=== PATIENT | male | born 1975 | race Caucasian/White ===

== ENCOUNTER 2019-07-12 08:31 | Emergency (ER) | payer OTHER ==
[~2019-07-12] VITALS: Ht 193 cm; Wt 99.8 kg
[~2019-07-12 08:31] MED LIST: KETO10TA2 PO; TAMS0.4C PO
== END 2019-07-12 14:24 | disposition home or self-care (01) ==
LOC: ER 08:31
DX: K21.9 Gastro-esophageal reflux disease without esophagitis (principal); R07.89 Other chest pain

== ENCOUNTER 2021-04-09 11:11 | Emergency (ER) | payer OTHER ==
[~2021-04-09] VITALS: Ht 193 cm; Wt 104.3 kg
== END 2021-04-09 16:29 | disposition home or self-care (01) ==
LOC: ER 11:11
DX: M54.9 Dorsalgia, unspecified (principal)

== ENCOUNTER 2024-06-29 23:11 | Emergency (ER) | payer OTHER ==
[~2024-06-29] VITALS: Ht 182.9 cm; Wt 104.3 kg
[2024-06-30] MEDS ORDERED: HYOSCYAMINE SULFATE 0.125 MG TAB.SUBL SL STA (00:54)
[2024-06-30] MEDS ORDERED: HYOSCYAMINE SULFATE 0.125 MG TAB.SUBL ONE (00:59)
[2024-06-30 01:33] LABS: BASO % 0.4 % (0.1-1.2); EOS % 0.1 % (0.7-7.0); HEMATOCRIT 44.3 % (40.1-51.0); HEMOGLOBIN 14.7 g/dL (13.7-17.5); LYMPH % 6.4 % (19.3-53.1); MEAN CORPUSCULAR HEMOGLOBIN 27.9 pg (25.6-32.2); MONO % 6.3 % (4.7-12.5); NEUT % 86.4 % (34.0-71.1); PLATELET COUNT 280 K/uL (163-369); RED BLOOD COUNT 5.27 M/uL (4.63-6.08); RED CELL DISTRIBUTION WIDTH 13.3 % (11.6-14.4)
[2024-06-30 01:34] LABS: EOS # 0.02 (0.04-0.54); LYMPH # 0.87 (1.18-3.74); MONO # 0.85 (0.24-0.82); NEUT # 11.69 (1.56-6.13)
[2024-06-30 01:59] LABS: CALCIUM 9.1 mg/dL (8.5-10.1); CREATININE SERUM 1.55 mg/dL (0.70-1.30); GFR 47.89; POTASSIUM 4.15 mEq/L (3.5-5.1)
[2024-06-30 02:08] LABS: URINE APPEARANCE Clear; URINE BILIRRUBIN Negative (NEGATIVE); URINE BLOOD Large; URINE COLOR Yellow; URINE GLUCOSE Negative (NEGATIVE); URINE KETONE Trace (NEGATIVE); URINE LEUKOCYTE Negative; URINE NITRATE Negative; URINE PROTEIN Negative (NEGATIVE)
[2024-06-30 02:12] LABS: URINE BACTERIA 25.6 uL (0.0-1933); URINE EPITHELIAL CELLS 4.1 uL (0.0-38.8); URINE RBC 140.3 uL (0.0-20.8); URINE WBC 14.7 uL (0.0-23.2)
[2024-06-30 02:16] LABS: URINE CAST 0.29 uL (0.0-1.40)
[2024-06-30] MEDS ORDERED: MINERAL OIL 30 ML BLIST.PACK ONE (05:04)
[2024-06-30] MEDS ORDERED: HYDROGEN PEROXIDE 473 ML BOTTLE TOP ONE (05:04)
== END 2024-06-30 07:36 | disposition home or self-care (01) ==
LOC: ER 23:11
DX: K59.00 Constipation, unspecified (principal); N13.9 Obstructive and reflux uropathy, unspecified; N20.1 Calculus of ureter

== ENCOUNTER 2024-07-05 10:59 | Emergency (ER) | payer OTHER ==
[~2024-07-05] VITALS: Ht 193 cm; Wt 104.3 kg
[2024-07-05] MEDS ORDERED: KETOROLAC TROMETHAMINE 60 MG VIAL IM ONE ×2 (12:07→12:15)
[2024-07-05 12:36] LABS: BASO % 0.4 % (0.1-1.2); EOS # 0.13 (0.04-0.54); EOS % 1.2 % (0.7-7.0); HEMATOCRIT 43.5 % (40.1-51.0); HEMOGLOBIN 14.5 g/dL (13.7-17.5); LYMPH # 1.11 (1.18-3.74); LYMPH % 9.9 % (19.3-53.1); MEAN CORPUSCULAR HEMOGLOBIN 27.9 pg (25.6-32.2); MONO # 0.73 (0.24-0.82); MONO % 6.5 % (4.7-12.5); NEUT # 9.19 (1.56-6.13); NEUT % 81.5 % (34.0-71.1); PLATELET COUNT 303 K/uL (163-369); RED BLOOD COUNT 5.19 M/uL (4.63-6.08)
[2024-07-05 12:57] LABS: ALBUMIN 3.7 gm/dL (3.4-5.0); BILIRUBIN TOTAL 0.42 mg/dL (0.3-1.2); CALCIUM 9.2 mg/dL (8.5-10.1); CREATININE SERUM 1.11 mg/dL (0.70-1.30); GFR 70.41; POTASSIUM 3.94 mEq/L (3.5-5.1); TOTAL PROTEIN 7.7 gm/dL (6.4-8.2)
[2024-07-05 12:59] LABS: PH,URINE 5.5 (5.0-8.0); URINE APPEARANCE Clear; URINE BILIRRUBIN Negative (NEGATIVE); URINE BLOOD Small; URINE COLOR Dark Yellow; URINE GLUCOSE Negative (NEGATIVE); URINE KETONE Trace (NEGATIVE); URINE LEUKOCYTE Negative; URINE NITRATE Negative; URINE PROTEIN Trace (NEGATIVE); URINE UROBILINOGEN 0.2 E.U./dl
[2024-07-05 13:02] LABS: URINE BACTERIA 9.7 uL (0.0-1933); URINE EPITHELIAL CELLS 5.6 uL (0.0-38.8); URINE RBC 69.5 uL (0.0-20.8); URINE WBC 8.6 uL (0.0-23.2)
[2024-07-05 13:03] LABS: URINE CAST 0.44 uL (0.0-1.40)
== END 2024-07-05 17:15 | disposition home or self-care (01) ==
LOC: ER 11:02
PROVIDERS: Emergency Medicine
DX: R10.9 Unspecified abdominal pain (principal); N20.9 Urinary calculus, unspecified; N20.1 Calculus of ureter